=== PATIENT | male | born 1985 | race Caucasian/White ===

== ENCOUNTER 2022-11-07 14:12 | Emergency (ER) | payer OTHER, SELFPAY ==
--- NOTE | ~2022-11-07 | CT_ITS ---
EXAMINATION: CT abdomen pelvis w con DATE: 11/07/2022 18:24 INDICATION: Left lower quadrant abdominal pain. TECHNIQUE: Computed tomography (CT) of the abdomen and pelvis was performed with 100 mL Omnipaque 350 intravenous contrast. Automated exposure control and iterative reconstruction technique were employe d. The dose-length product was 1478.87 mGy-cm. COMPARISON: None. FINDINGS: The visualized portions of the lung bases demonstrate mild atelectasis. There is a 7 mm nod ule in left lung lower lobe. No pleural effusion. The heart size is normal. No pericardial effusion. The liver, gallbladder, spleen, pancreas, adrenal glands, and kidneys are normal. There are bilateral inguinal hernias containing fat. There are no dilated loops of bowel. The appendix is normal. There are no pathologically enlarged lymph nodes. There is no free intraperitoneal fluid. There is mild tho racolumbar spondylosis. IMPRESSION: 1. Bilateral inguinal hernias containing fat. 2. 7 mm pulmonary nodule, probably benign. Noncontrast low-dose chest CT is recommended in 6 months. Reviewed, dictated and finalized at location A. [facility] IMPRESSION: 1. Bilateral inguinal hernias containing fat. 2. 7 mm pulmonary nodule, probably benign. Noncontrast low-dose chest CT is rec ommended in 6 months.
[2022-11-07 14:37] VITALS: BP 132/72; PULSE 72; RESP 18; TEMP 36.6; O2SAT 97
--- NOTE | 2022-11-07 17:01 | ED.ABDPAIN ---
HPI - Abdominal Pain General Chief Complaint: Abdominal Pain Stated Complaint: ABD pain Time Seen by Provider: 11/07/22 16:52 Source: patient Mode of arrival: ambulatory Limitations: no limitations History of Present Illness HPI narrative: Patient is a 37 y/o male who presents to the ED with c/o L lower abdominal pain. Patient reports having pain in his left lower abdomen, radiating into his left-sided scrotum for the past few weeks. Over the last 1 week with straining or coughing, he has felt like his intestines have been going into his scrotum. He was seen at Dr. Herndon's office today and sent here for a CT scan of his abdomen pelvis to rule out femoral hernia. Patient was already given Dr. Lopes's information for f/u. Patient states the pain has continued to worsen. He has not tried anything for pain. He also reports having nausea and some constipation, last bowel movement 3 days ago. Denies diarrhea, vomiting, fevers, urinary symptoms. Related Data Allergies Allergy/AdvReac Type Severity Reaction Status Date / Time No Known Allergies Allergy Verified 11/07/22 17:42 Review of Systems Review of Systems: CONSTITUTIONAL: Denies fever, chills, or sweats. CARDIOVASCULAR: Denies chest pain. RESPIRATORY: Denies dyspnea. GASTROINTESTINAL: See HPI. GENITOURINARY: See HPI. All systems reviewed & are unremarkable except as noted in HPI and below PMFSH Past Medical History Medical History (Updated 11/07/22 @ 18:41 by Staci Hubbard PA-C) No pertinent past medical history Surgical History Surgical History (Updated 11/07/22 @ 17:29 by Staci Hubbard PA-C) No pertinent past surgical history Social History Social History (Updated 11/07/22 @ 17:29 by Staci Hubbard PA-C) Smoking status: Never smoker Exam Narrative: GENERAL: Well appearing, obese, non-toxic, in no acute distress. HEAD: Normocephalic, atraumatic. NECK: Supple. No adenopathy, no masses. RESPIRATORY: Airway patent, respirations nonlabored. Clear to auscultation bilaterally, no rales, rhonchi, wheezing. CARDIOVASCULAR: Regular rate and rhythm without murmurs, rubs, or gallops. Peripheral pulses 2+ and equal bilaterally. ABDOMINAL: Soft, tenderness diffusely throughout left lower abdomen, nondistended, no hepatosplenomegaly. Normoactive BS. GENITAL: Exam performed by Dr. Daniel as patient requested male provider. No scrotal tenderness, swelling, redness or identifiable palpable inguinal hernia. MUSCULOSKELETAL: Moves all extremities. Strength/ROM intact without gross deformities. SKIN: Warm, dry, normal color. No rashes. NEURO: A&O X3. Speech clear. Cranial nerves II-XII grossly intact. Steady gait. No ataxic movements. PSYCHIATRIC: Appropriate mood and affect. Normal interaction. Course Vital Signs Vital signs: Vital Signs Temperature 97.8 F 11/07/22 14:37 Pulse Rate 72 11/07/22 14:37 Respiratory Rate 18 11/07/22 14:37 Blood Pressure 132/72 11/07/22 14:37 Pulse Oximetry 97 11/07/22 14:37 Oxygen Delivery Room Air 11/07/22 14:37 Temperature 97.8 F 11/07/22 14:37 Pulse Rate 72 11/07/22 14:37 Respiratory Rate 18 11/07/22 14:37 Blood Pressure 132/72 11/07/22 14:37 Pulse Oximetry 97 11/07/22 14:37 Oxygen Delivery Room Air 11/07/22 14:37 MDM - Abdominal Pain MDM Narrative Medical decision making narrative: Patient presented to ED with several week history of left lower quadrant abdominal pain, sent from PCPs office today for evaluation of hernia. Vitals stable upon arrival. Patient with diffuse tenderness throughout left lower abdomen. Final exam performed by Dr. Velasquez and fairly unremarkable. No identifiable hernia. Basic labs obtained are unremarkable. No leukocytosis. Lactic acid within normal limits. UA negative. CT scan of abdomen pelvis showing bilateral fat-containing inguinal hernias. No signs of bowel obstruction. No other acute intra-abdominal findings. Did show a pulm
[2022-11-07] MEDS: ONDANSETRON INJ 4 MG/2 ML VIAL IV PUSH (17:42)
[2022-11-07] MEDS: MORPHINE SULFATE (*CRX) 4 MG/ML INJ IV PUSH (17:43)
[2022-11-07 17:44] LABS: Basophils Absolute Auto 0.1 K/mm3 (0.0-0.1); Basophils Percent Auto 0.7 % (0.2-1.2); Eosinophils Absolute Auto 0.1 K/mm3 (0-0.3); Eosinophils Percent Auto 1.6 % (0-4.4); Hematocrit 45.1 % (42.0-52.0); Hemoglobin 15.8 g/dL (14.0-18.0); Immature Granulocyte Absolute 0.03 K/mm3 (0.00-0.031); Immature Granulocyte Percent A 0.3 % (0-0.5); Lymphocytes Absolute Auto 2.63 K/mm3 (0.9-3.2); Lymphocytes Percent Auto 30.3 % (18.3-44.2); Mean Corpuscular Hemoglobin 30.4 pg (26-34); Mean Corpuscular Volume 86.9 fl (80-100); Mean Platelet Volume 10.1 fl (7.4-10.4); Monocytes Absolute Auto 0.7 K/mm3 (0.1-0.6); Monocytes Percent Auto 7.9 % (2.6-8.5); Neutrophils Absolute Auto 5.1 K/mm3 (1.3-6.7); Neutrophils Percent Auto 59.2 % (45.5-73.1); Platelet Count Result 235 k/mm3 (150-375); Red Blood Count 5.19 M/mm3 (4.6-6.20); Red Cell Distribution Width 12.2 % (11.5-14.5); White Blood Count 8.7 K/mm3 (4.5-10.0)
[2022-11-07 17:55] LABS: Appearance Urine Clear (Clear); Bilirubin Urine Negative (Negative); Blood Urine Negative (Negative); Color Urine Yellow (Yellow); Glucose Urine UA Negative (Negative); Ketones Urine Negative (Negative); Leukocyte Esterase Ur Negative LEU/UL (Negative); Nitrate Urine Negative (Negative); Protein Urine Negative (Negative); Specific Grav Ur 1.025 (1.001-1.035)
[2022-11-07 17:58] LABS: Lactic Acid Reflex 1.7 mmol/L (0.7-2.0)
[2022-11-07 17:59] LABS: Add Urine Microscopic? NO
[2022-11-07 18:00] LABS: Alanine Aminotransferase 43 U/L (6-50); Albumin Level 4.9 g/dL (3.5-5.1); Alkaline Phosphatase 107 U/L (38-126); Aspartate Amino Transferase 31 U/L (17-59); Bilirubin,Total 0.4 mg/dL (0.2-1.3); Blood Urea Nitrogen 13 mg/dL (9-20); Calcium 9.1 mg/dL (8.4-10.2); Carbon Dioxide 27 mmol/L (22-30); Estimated CRCL calculation 120 ml/min; Estimated Glomerular Filt Rate > 60; Glucose 64 mg/dL (65-110); Lipase 85 U/L (23-300); Potassium 3.9 mmol/L (3.4-5.0); Sodium 143 mmol/L (137-145)
[2022-11-07 18:01] LABS: Anion Gap 9 mmol/L (8-16); Chloride 107 mmol/L (98-107)
[2022-11-07] MEDS: ACETAMINOPHEN 500 MG TABLET 1000 MG PO (19:01)
[2022-11-07 19:02] VITALS: BP 154/74; PULSE 70; RESP 12; O2SAT 98
== END 2022-11-07 19:04 | disposition home or self-care (01) ==
PROVIDERS: Emergency Provider Physician Assistant; PCP Emergency Medicine
DX: K40.20 Bilateral inguinal hernia, without obstruction or gangrene, not specified as recurrent (principal); R91.1 Solitary pulmonary nodule
CPT/HCPCS: 36415; 74177; 80053; 81003; 83605; 83690; 85025; 96374; 96375; 99284; A9270; J2270; J2405; Q9967

== ENCOUNTER 2022-11-15 09:00 | Outpatient (NON) | payer OTHER, SELFPAY ==
--- NOTE | ~2022-11-15 | XR_ITS ---
CORRECTED REPORT Changed report and images from [id number] TO [id number] [facility] EXAMINATION: XR chest 2V DATE: 11/15/2022 11:50 INDICATION: Right lung nodule. Preoperative evaluation. Cough. TECHNIQUE: PA and lateral views of the chest were obtained. COMPARISON: CT dated 11/07/2022 FINDINGS: The lungs are clear with no focal airspace opacities, pulmonary edema, pleural effusion or pneumothorax. The 7 mm nodule posterior left lower lobe on prior CT is too small to be visualized by plain radiographs. The cardiomediastinal silhouette is normal. Mild thoracic spondylosis. IMPRESSION: 1. No acute cardiopulmonary disease. 2. There is noted 7 mm left lower lobe nodule too small to be discerned by plain radiograph and six-month follow-up low-dose noncontrast chest CT would still be recommended. Reviewed, dictated and finalized at location B. [facility]
== END 2022-11-15 09:01 | disposition home or self-care (01) ==
LOC: ANHIMG 11-18 12:51
PROVIDERS: PCP Emergency Medicine; Visit Provider Emergency Medicine
DX: R91.1 Solitary pulmonary nodule (principal)
CPT/HCPCS: 71046

== ENCOUNTER 2022-11-15 11:12 | Outpatient (CLI) | payer OTHER, SELFPAY | END 2022-11-15 11:13 | disposition home or self-care (01) | PROVIDERS: PCP Emergency Medicine; Referring Provider Emergency Medicine; Visit Provider Anesthesiology | DX: K46.9 Unspecified abdominal hernia without obstruction or gangrene (principal); R91.1 Solitary pulmonary nodule | CPT/HCPCS: 36415; 71046; 86850; 86900; 86901 ==

== ENCOUNTER 2022-11-19 01:13 | Day surgery (SDC) | payer OTHER, SELFPAY ==
[2022-11-14 16:44] VITALS: BMI 35.9
--- NOTE | 2022-11-14 17:22 | PC.NURSE ---
Report to the Outpatient Waiting Room, entrance under the green pavilion located off [facility], at 0800 on 11-19-22. Planned Procedure Time: 1000. Time changes happen often and if your time is changed the preop area will call you the afternoon before. - You and your visitor will be asked to self-screen and do not enter if you have any COVID symptoms. - Only one visitor is requested with a max of two and NO children visitors are allowed at this time. - The patient visitor may be requested to leave or wait in car when not with patient due to distancing restrictions. - A mask is optional within the hospital at this time. Patients may have clear liquids (water, carbonated beverages, clear teas, apple juice) until 3 hours prior to surgery with a maximum of 20 ounces. 0700 - No food from midnight until time of surgery - Infants may have breast milk until 4 hours before surgery, infant formula 6 hours prior to surgery. - Children will be allowed to drink immediately following surgery. If applicable, please bring a bottle or sippy cup to assist with drinking. Juice, water, soda, and popsicles are readily available. For infants on formula, please bring formula the day of surgery. Pacifiers are allowed. Take the following medications with a SIP of water the morning of surgery: zoloft if going to take in the AM DO NOT STOP ANY OF YOUR OTHER PRESCRIPTION MEDICATIONS PRIOR TO SURGERY ?EXCEPT THE FOLLOWING Medications to discontinue per physician: N/A Please no make-up, nail arabic, hairspray, perfume, deodorant, or body powder the day of surgery. No jewelry (including any body piercings) or valuables the day of surgery, leave them at home. Please take a shower or bath the night before, or the morning of, surgery with an antibacterial soap. Wear comfortable, loose fitting clothing. Children are encouraged to wear pajamas. - Jewelry must be removed prior to entering the operating room. Rings and piercings that are not removed may be cut off. - The hospital will not accept responsibility for valuables. - Please leave all valuables, including medications, at home the day of surgery. If you are going home after surgery, a licensed dump truck driver off highway must drive you home. - NO public transportation without another adult if you receive anesthesia. - We recommend that an adult stay with you for 24 hours following discharge. - We also recommend that you do not drive, make important decision, drink alcoholic beverages, or take any drugs that were not prescribed by your health care provider for at least 24 hours after your discharge time. For Pediatric surgeries, we recommend two adults accompany the child home. Follow any additional instructions given to you from your surgeon. If you or anyone in your household have experienced Covid symptoms in the past week, please notify your surgeon or the nurse liaison at the phone number below for possible testing. Telephone instructions given to Michele Alonso and asked if any additional questions and then verbalized understanding. Patient advised to call surgeon office or pre surgery nurse liaison [phone] if any additional questions.
[2022-11-19] VITALS (11 sets, daily range): BP systolic 114–157; BP diastolic 70–99; PULSE 51–79; RESP 12–24; TEMP 36.6; O2SAT 91–100; BMI 35.2
--- NOTE | 2022-11-19 07:02 | WPDHPUPDATE1 ---
History and Physical Update Update Date/Time: 11/19/22 07:02 History and Physical has been reviewed, including an updated exam of the patient. There are NO changes in the patient's condition. Risks, benefits, and alternatives have been discussed and questions answered. Patient agrees to proceed with procedure.
[2022-11-19] MEDS: LACTATED RINGERS 1,000 ML 30 ML IV CONT ×3 (08:25→12:57)
[2022-11-19] MEDS: ACETAMINOPHEN 500 MG TABLET 1000 MG PO (08:36)
[2022-11-19] MEDS: KETOROLAC 15 MG/ML VIAL (*BKC) IV PUSH (08:36)
--- NOTE | 2022-11-19 08:51 | WPDANESEPPF ---
Anes - Initial Pre Proc Eval Procedure: Operation Date: 11/19/22 10:00 Proposed Procedures p Robotic Assisted Laparoscopic Left Inguinal Hernia Repair - Waldemar Lopes MD Date/Time: 11/19/22 08:51 Surgeon: Waldemar Lopes MD Pre Op Diagnosis: Left Inguinal Hernia Patient Data Age: 37 Gender: M Height: 1.83 m Weight: 117.7 kg Last Vital Signs Temp 36.6 C 11/19/22 08:05 Pulse 57 L 11/19/22 08:05 Resp 16 11/19/22 08:05 BP 114/70 11/19/22 08:05 Pulse Ox 98 11/19/22 08:05 O2 Del Method Room Air 11/19/22 08:05 Allergies Allergy/AdvReac Type Severity Reaction Status Date / Time No Known Allergies Allergy Verified 11/19/22 08:40 Home Medications Medication Instructions Recorded Confirmed Type amoxicillin 875 mg-potassium 1 tablet PO BID 11/14/22 11/14/22 History clavulanate 125 mg tablet sertraline 25 mg tablet (Zoloft) 25 mg PO DAILY 11/14/22 11/14/22 History Patient hx anesthesia problems: none Family hx anesthesia problems: none Results Review: All pre-operative results and documents have been reviewed as part of the pre-operative evaluation. [facility] Past Medical History Medical History (Updated 11/19/22 @ 08:52 by Ricky Britton MD) No pertinent past medical history Obesity Surgical History Surgical History No pertinent past surgical history Family History Family History Father Hypertension Carcinoma of colon Social History Social History Smoking packs per day: 1 Smoking cigarettes per day: 20.0 Years smoked: 10 Smoking pack-years: 10.00 Smoking status: Former smoker Tobacco type: cigarettes Second hand tobacco smoke exposure: No Alcohol intake: never Substance use: current Substance use type: marijuana Other substance usage details: uses daily Living arrangements: with family Occupation/Education: occupation Additional occupation/education comments: Training Engineer Spiritual care concerns: No Anes - Eval Final PreProcedure Day of Procedure 11/19/22 08:51 Patient weight: obese Heart: regular rate and rhythm Lungs: clear to auscultation Airway: Mallampati scale class II Neurological: alert and oriented Last oral intake: >/= 8 hours ASA classification: II Emergent: no Anesthetic plan: proceed Anesthesia type and monitoring: general ETT and standard monitoring Results Review: All pre-operative results and documents have been reviewed as part of the pre-operative evaluation. Informed Consent: The patient's anesthetic plan and its attendant risks and benefits were discussed with the patient/family/POA. Questions were solicited and answers provided to the satisfaction of the patient/family/POA.
--- NOTE | 2022-11-19 09:30 | SUR.PREOP ---
0930- Notified Dr. Lopes patient has small healing scratches to right side of abdomen. Dr. Lopes in to see patient and assessed scratches. Per Dr. Lopes scratches of no concern and OK to proceed.
[2022-11-19] MEDS: ceFAZolin 2 GM/D5W 50 ML 2 GM/50 ML BAG IVPB (09:57)
[2022-11-19] MEDS: BUPIVACAINE/EPINEPHRINE 0.5% 30 ML VIAL INFILTRATE (10:31)
--- NOTE | 2022-11-19 12:09 | W.PM.PROC2 ---
Procedure Note - Detailed Date of Procedure 11/19/22 Pre-op Diagnosis Left Inguinal Hernia Post-op Diagnosis Same Procedure Performed Robotic assisted laparoscopic left inguinal hernia repair with 17 x 12 cm 3DMax mesh Surgeon Waldemar Lopes MD Label Drier Clarence GROVES Anesthesia General and Local (0.5% Marcaine with epinephrine) Indications Patient has had pain in both groins. He went to the emergency room. CT scan showed bilateral inguinal hernias containing fat. The left side was the side that was larger and that he noticed 1st. He was examined in the office and found to have only a left inguinal hernia, no right inguinal hernia. He is taken to surgery now for left inguinal hernia repair. Findings He had an indirect left inguinal hernia. There was also some fatty tissue in the inguinal canal. This lipoma was removed during the surgery. Description of Procedure Patient was taken to surgery and induced into general anesthesia. The abdomen is prepped and draped. An applied Medical optical trocar was used to gain access to the peritoneal cavity in the left subcostal position. Local anesthetic was infiltrated into each of the trocar sites prior to placing them. After the initial trocar was placed, we insufflated and then placed 2 8 mm robotic trocars in the midline and right upper quadrant. The 5 mm left upper quadrant trocar was then replaced for an 8 mm robotic trocar as well. We then brought in the robot. Robot was docked and the endoscope targeted. The surgical instruments were applied and then the surgeon went to the console. There were numerous adhesions of the sigmoid colon all across the lower abdomen in the left lower quadrant and the right lower quadrant. Some of these adhesions were taken down so that the left side groin structures were visible. The adhesions were more dense on the right side and although it would have been nice to see if there was a right side and hernia, the adhesions were quite dense and 2 difficult to take down when and there was no hernia on examination. We then turned our attention to the left groin structures. The peritoneum was opened near the median umbilical ligament well above the hernia defect. The peritoneum was scored anteriorly and then laterally to the level of the pectinate line. We then created a peritoneal flap. This was started medially and then extended laterally. We carefully freed peritoneal flap from the inferior epigastric vessels. Going back to the medial aspect of the flap, dissection was carried down to Turner's ligament and the pubic tubercle. We then went again laterally and dissected the flap posteriorly until the pectinate line was evident in the peritoneal dissection was posterior to where the mesh would be placed. Finally we went to the area of the inguinal hernia. The hernia sac was gently reduced and carefully dissected free from the cord structures. There was a large lipoma of the cord. This was dissected free and dissected away from the cord structures. It was dissected and then eventually excised. We continued our dissection freeing the peritoneum and the hernia sac from the cord structures. Eventually the peritoneum in this area was dissected to the same level, about 2 cm posterior to the pubic tubercle, as the remainder the peritoneal dissection. All looked good. There was plenty of room for the mesh. A 17 x 12 cm 3DMax mesh was then introduced. It was placed in the defect and oriented appropriately. 3-0 Vicryl suture were then used to secure the mesh. One suture was placed in the periosteum of the pubic tubercle. Two additional sutures were placed 1 on the medial aspect of the abdominal wall, medial to the inferior epigastric vessels. The final suture was placed in the lateral anterior abdominal wall. A 3-0 V lock was then introduced. The V lock suture was used to close the peritoneal opening. The closure was started at the median umbilical ligament and continued
[2022-11-19] MEDS: fentaNYL CITRATE INJ (*CRX) 100 MCG/2 ML VIAL 25 MCG IV PUSH ×8 (12:20→12:50)
[2022-11-19] MEDS: HYDROmorphone HCL INJ (*CRX) 1 MG/ML SYR 0.5 MG IV PUSH ×4 (12:55→13:19)
[2022-11-19] MEDS: oxyCODONE HCL (*CRX) 5 MG TAB IR PO (14:01)
[2022-11-19] MEDS: MIDAZOLAM HCL (*CRX) 2 MG/2 ML VIAL IV PUSH (14:04)
== END 2022-11-19 15:00 | disposition home or self-care (01) ==
PROVIDERS: PCP Emergency Medicine; Visit Provider Surgery
PROC: 8E0Y4CZ Robotic Assisted Procedure of Lower Extremity, Percutaneous Endoscopic Approach (ICD-10-PCS; CPT 49650; principal; 2022-11-19 10:00)
DX: K40.90 Unilateral inguinal hernia, without obstruction or gangrene, not specified as recurrent (principal); D17.6 Benign lipomatous neoplasm of spermatic cord; E66.9 Obesity, unspecified; Z68.35 Body mass index [BMI] 35.0-35.9, adult; Z87.891 Personal history of nicotine dependence; F12.90 Cannabis use, unspecified, uncomplicated
CPT/HCPCS: 49650; S2900; A9270; C1781; J0690; J1100; J1170; J1885; J2250; J2405; J2704; J2710; J3010; J7120